=== PATIENT | male | born 1980 | race Caucasian/White ===

== ENCOUNTER 2019-07-24 17:15 | Emergency (ER) | payer SELFPAY ==
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
[2019-07-24] MEDS ORDERED: KETOROLAC TROMETHAMINE INJ 60 MG/2 ML VIAL IM ONE ×2 (17:50→17:51)
[2019-07-24 17:51] VITALS: O2SAT 99
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
[2019-07-24 18:46] VITALS: BP 123/77; TEMP 99.6
== END 2019-07-24 18:46 | disposition home or self-care (01) ==
LOC: ER 17:15
DX: S99.912A Unspecified injury of left ankle, initial encounter (principal); W22.8XXA Striking against or struck by other objects, initial encounter; Y93.89 Activity, other specified; Y92.009 Unspecified place in unspecified non-institutional (private) residence as the place of occurrence of the external cause
CPT/HCPCS: 73610; J1885